=== PATIENT | male | born 1980 | race Caucasian/White ===

== ENCOUNTER 2017-01-11 12:24 | Emergency (ER) | payer OTHER ==
[2017-01-11 12:49] VITALS: BP 143/87; PULSE 83; RESP 16; TEMP 97.4
[2017-01-11] MEDS ORDERED: HYDROmorphone 1 MG/ML 1 ML SYRINGE IM STA (13:36)
--- NOTE | 2017-01-11 13:41 | ED ---
General Adult HPI - General Chief complaint: Back Pain/Injury Stated complaint: Back Injury/pain Time Seen by Provider: 01/11/17 13:00 Source: patient, RN notes reviewed Mode of arrival: ambulatory Limitations: no limitations - History of Present Illness Initial comments: This is a 36-year-old male presents with chronic low back pain. Patient states he follows with his primary care provider for this pain and she directly sent him to the today for a shot of Dilaudid. Patient states he is taking care of his daughter over the weekend and has been moving so his back pain has been worse than usual. Patient denies any new injury or any new symptoms. Patient denies any change in bowel or bladder function or loss of sensation to the saddle area. Patient states this is the same pain he always has. Patient denies any numbness/tingling or weakness to the lower extremities. Patient is able to ambulate. Patient is already on a muscle relaxer and a steroid for this pain. Patient states he is going to follow up with his primary care provider for further pain management.Patient denies any recent fever, chills, shortness breath, chest pain, abdominal pain, nausea/vomiting/diarrhea, back pain, hematuria, headache, or visual changes, or any other complaints. - Related Data Home Medications Medication Instructions Recorded Confirmed Ibuprofen [Motrin] 800 mg PO Q8HR PRN 02/12/16 03/06/16 Gabapentin [Neurontin] 600 mg PO TID 03/06/16 03/06/16 Previous Rx's Medication Instructions Recorded Cyclobenzaprine [Flexeril] 10 mg PO TID #20 tablet 03/06/16 Gabapentin [Neurontin] 600 mg PO TID #60 tab 03/06/16 predniSONE 50 mg PO DAILY #5 tab 03/06/16 Gabapentin 600 mg PO TID #90 tab 06/21/16 Metaxalone [Skelaxin] 800 mg PO TID PRN #15 tab 06/21/16 Allergies Allergy/AdvReac Type Severity Reaction Status Date / Time Benzodiazepines AdvReac Unknown Verified 01/11/17 12:46 Review of Systems ROS Statement: Those systems with pertinent positive or pertinent negative responses have been documented in the HPI. ROS Other: All systems not noted in ROS Statement are negative. Past Medical History Additional Past Medical History / Comment(s): BACK PAIN History of Any Multi-Drug Resistant Organisms: None Reported Past Surgical History: No Surgical Hx Reported Past Psychological History: Anxiety, PTSD Smoking Status: Current every day smoker Past Alcohol Use History: None Reported Past Drug Use History: None Reported General Exam - General Exam Comments Initial Comments: General: The patient is awake and alert, in no distress, and does not appear acutely ill. Neck: The neck is supple, there is no tenderness or JVD. Cardiovascular: There is a regular rate and rhythm. No murmur, rub or gallop is appreciated. Respiratory: Lungs are clear to auscultation, respirations are non-labored, breath sounds are equal. No wheezes, stridor, rales, or rhonchi. Musculoskeletal: There is some mild tenderness to palpation to the right side lumbar paraspinal muscles. Patient is able to ambulate. Full range of motion, strength 5/5 and Sensation intact. Radial pulses 2+ bilaterally. Neurological: A&O x 3. CN II-XII intact, There are no obvious motor or sensory deficits. Coordination appears grossly intact. Speech is normal. Skin: Skin is warm and dry and no rashes or lesions are noted. Psychiatric: Normal mood and affect. Limitations: no limitations Course Vital Signs 01/11/17 12:46 Temperature 97.4 F L Pulse Rate 83 Respiratory 16 Rate Blood Pressure 143/87 O2 Sat by Pulse 98 Oximetry Medical Decision Making - Medical Decision Making This is a 36-year-old male presents with chronic lower back pain who was sent by his primary care provider for shot of Dilaudid. On physical exam patient is neurologically intact. There is some mild tenderness to palpation to the right side lumbar paraspinal muscles. Patient is able to ambulate. Full range of motion, strength 5/5 and Sensation intact. Radial pulses 2+ bilaterally. Patient was given a shot of Dilaudid in the [facility] today. Patient has a ride home. Patient agrees that he will follow-up with his primary care provider for further pain management. Discussed return parameters. Discussed that patient should follow up with PCP in one to 2 days or return to the [facility] for any worsening symptoms or for any further concerns. Patient was receptive to this plan and patient will be discharged home. Disposition Clinical Impression: Chronic low back pain Disposition: HOME SELF-CARE Condition: Good Instructions: Chronic Back Pain (ED) Additional Instructions: Please follow-up with primary care provider for further pain management. Please return to the [facility] for any worsening symptoms or for any further concerns. Time of Disposition: 13:39
== END 2017-01-11 14:01 | disposition home or self-care (01) ==
LOC: EC 12:24
DX: G89.29 Other chronic pain (principal); M54.5 Low back pain; F17.200 Nicotine dependence, unspecified, uncomplicated; Z79.899 Other long term (current) drug therapy
CPT/HCPCS: 99283; 96372; J1170

== ENCOUNTER 2017-03-10 15:27 | Emergency (ER) | payer OTHER ==
[2017-03-10 15:43] VITALS: BP 120/67; PULSE 96; RESP 18; TEMP 98.3
[2017-03-10] MEDS ORDERED: HYDROmorphone 1 MG/ML 1 ML SYRINGE IM STA (15:57)
[2017-03-10] MEDS ORDERED: methylPREDNISolone SOD SUCCI 125 MG/2 ML VIAL IM ONE (15:57)
--- NOTE | 2017-03-10 16:01 | ED ---
Back Pain HPI - General Chief Complaint: Back Pain/Injury Stated Complaint: back pain Time Seen by Provider: 03/10/17 15:44 Source: patient, RN notes reviewed, old records reviewed Limitations: no limitations - History of Present Illness Initial Comments: Patient is a 29-year-old male with chief complaint of acute exacerbation of chronic back pain. Patient reports that he called his primary care provider in the emergency department for a pain shot. Patient states that he is beginning with back pain for many years. He states that he has been taking Tylenol for his pain which usually help. He states that over the past few days and became much worse and radiates on the right side of his back into his right leg. He denies any saddle anesthesias or incontinence. Patient states that he is currently take care of his daughter with partial custody and when he is with her area becomes worse as he has to continue to pick her up. Patient states that he's had no falls or traumatic injuries to cause new pain. He states he has had CAT scans and MRIs and is planning to see a pain specialist. Patient has an appointment with the house painter on April 14. He states he has an appointment to see his primary care provider by the end of the next week. Patient denies any recent fever, chills, shortness of breath, chest pain , abdominal pain, nausea vomiting, numbness or tingling, dysuria or hematuria, constipation or diarrhea, headaches or visual changes, or any other current symptoms - Related Data Home Medications Medication Instructions Recorded Confirmed Ibuprofen [Motrin] 800 mg PO Q8HR PRN 02/12/16 03/06/16 Gabapentin [Neurontin] 600 mg PO TID 03/06/16 03/06/16 Previous Rx's Medication Instructions Recorded Cyclobenzaprine [Flexeril] 10 mg PO TID #20 tablet 03/06/16 Gabapentin [Neurontin] 600 mg PO TID #60 tab 03/06/16 predniSONE 50 mg PO DAILY #5 tab 03/06/16 Gabapentin 600 mg PO TID #90 tab 06/21/16 Metaxalone [Skelaxin] 800 mg PO TID PRN #15 tab 06/21/16 Dexamethasone 0.75 mg PO DAILY #12 tab 03/10/17 traMADol HCl [Ultram] 50 mg PO Q6H PRN #15 tab 03/10/17 Allergies Allergy/AdvReac Type Severity Reaction Status Date / Time No Known Allergies Allergy Verified 03/10/17 15:43 Review of Systems ROS Statement: Those systems with pertinent positive or pertinent negative responses have been documented in the HPI. ROS Other: All systems not noted in ROS Statement are negative. Past Medical History Additional Past Medical History / Comment(s): BACK PAIN History of Any Multi-Drug Resistant Organisms: None Reported Past Surgical History: No Surgical Hx Reported Past Psychological History: Anxiety, PTSD Smoking Status: Current every day smoker Past Alcohol Use History: None Reported Past Drug Use History: None Reported General Exam - General Exam Comments Initial Comments: Patient is a 37-year-old male in no acute distress. Limitations: no limitations General appearance: alert, in no apparent distress Head exam: Present: atraumatic, normocephalic, normal inspection Eye exam: Present: normal appearance, PERRL, EOMI. Absent: scleral icterus, conjunctival injection, periorbital swelling ENT exam: Present: normal exam, mucous membranes moist Neck exam: Present: normal inspection. Absent: tenderness, meningismus, lymphadenopathy Respiratory exam: Present: normal lung sounds bilaterally. Absent: respiratory distress, wheezes, rales, rhonchi, stridor Cardiovascular Exam: Present: regular rate, normal rhythm, normal heart sounds. Absent: systolic murmur, diastolic murmur, rubs, gallop, clicks GI/Abdominal exam: Present: soft, normal bowel sounds. Absent: distended, tenderness, guarding, rebound, rigid Extremities exam: Present: normal inspection, full ROM, normal capillary refill. Absent: tenderness, pedal edema, joint swelling, calf tenderness Back exam: Present: normal inspection, tenderness (Patient has tenderness over the right lumbar paraspinous muscles.), muscle spasm, paraspinal tenderness Expanded Back exam: Positive Straight Leg Raise: Right Neurological exam: Present: alert, oriented X3, CN II-XII intact Psychiatric exam: Present: normal affect, normal mood Skin exam: Present: warm, dry, intact, normal color. Absent: rash Course Vital Signs 03/10/17 15:40 Temperature 98.3 F Pulse Rate 96 Respiratory 18 Rate Blood Pressure 120/67 O2 Sat by Pulse 97 Oximetry Medical Decision Making - Medical Decision Making Is a 37-year-old male with chief complaint acute exacerbation of chronic lower back pain. He states is worse over the past 3 days. He denies any urinary incontinence anesthesias. Patient states he is able to walk. Sensation and deep tendon reflexes intact. Patient has normal capillary refill. Patient is tender to the right paraspinous muscles. Patient was given IM plan Medrol and 0.5 of Dilaudid. Patient has a ride home by his girlfriend. Patient will be discharged with eczema some for the next few days as well as tramadol for pain. Discussed close follow-up with primary care provider and to keep the pain management clinic. Patient states that he does not want any other imaging states at this time due to no history of trauma or injuries. He states he's had recent CAT scans and MRIs which show that he is currently disc bulges. Patient agrees on return parameters including saddle anesthesia urinary incontinence. Patient understood history plan will comply. Return parameters were discussed. Disposition Clinical Impression: Acute exacerbation of chronic low back pain Disposition: HOME SELF-CARE Condition: Good Instructions: Acute Low Back Pain (ED) Additional Instructions: Patient advised to follow up with primary care provider next week. Keep ear appointment with a house painter. Return to the emergency department if any alarming signs or symptoms occur, including loss of bowel or bladder control. Prescriptions: Dexamethasone 0.75 mg PO DAILY #12 tab traMADol HCl [Ultram] 50 mg PO Q6H PRN #15 tab PRN Reason: Pain Referrals: Katey Shaw MD [Primary Care Provider] - 1-2 days Jae Basilio DO [Doctor of Osteopathic Medicine] - 1-2 days Time of Disposition: 15:58
== END 2017-03-10 16:11 | disposition home or self-care (01) ==
LOC: EC 15:27
DX: G89.29 Other chronic pain (principal); M54.5 Low back pain; L30.9 Dermatitis, unspecified; F41.9 Anxiety disorder, unspecified; F17.200 Nicotine dependence, unspecified, uncomplicated; Z79.899 Other long term (current) drug therapy
CPT/HCPCS: 99283; 96372 ×2; J2930; J1170

== ENCOUNTER 2017-06-03 11:21 | Emergency (ER) | payer OTHER ==
[2017-06-03 11:33] VITALS: RESP 18
--- NOTE | 2017-06-03 11:56 | ED ---
General Adult HPI - General Chief complaint: Anxiety Stated complaint: ANXIETY Time Seen by Provider: 06/03/17 11:36 Source: patient, RN notes reviewed, old records reviewed Mode of arrival: ambulatory Limitations: no limitations - History of Present Illness Initial comments: Chief complaint history of present illness a 37-year-old male here with complaint of panic attacks. The patient states she has a history of PTSD from the . He also has chronic back pain. He states he has an appointment to follow-up with the trish saul one week and his family physician. He states for the past week he's had episodes where he he has severe panic attacks. Not suicidal not depressed. - Related Data Home Medications Medication Instructions Recorded Confirmed Ibuprofen [Motrin] 800 mg PO Q8HR PRN 02/12/16 03/06/16 Gabapentin [Neurontin] 600 mg PO TID 03/06/16 03/06/16 Previous Rx's Medication Instructions Recorded Cyclobenzaprine [Flexeril] 10 mg PO TID #20 tablet 03/06/16 Gabapentin [Neurontin] 600 mg PO TID #60 tab 03/06/16 predniSONE 50 mg PO DAILY #5 tab 03/06/16 Gabapentin 600 mg PO TID #90 tab 06/21/16 Metaxalone [Skelaxin] 800 mg PO TID PRN #15 tab 06/21/16 Dexamethasone 0.75 mg PO DAILY #12 tab 03/10/17 traMADol HCl [Ultram] 50 mg PO Q6H PRN #15 tab 03/10/17 ALPRAZolam [Xanax] 0.25 mg PO DAILY PRN #10 tab 06/03/17 Allergies Allergy/AdvReac Type Severity Reaction Status Date / Time No Known Allergies Allergy Verified 06/03/17 11:32 Review of Systems ROS Statement: Those systems with pertinent positive or pertinent negative responses have been documented in the HPI. Review of systems not complaining of any headache visual acuity, no chest pain shortness breath GI/ problems. Emotionally the patient states he has PTSD and anxiety with panic attacks. He states he used to be on Xanax which weren't taken at the beginning of a panic attack help stop the panic attack quickly. He takes less than one per week. All systems were reviewed past medical problems chronic back pain, degenerative disc disease, PTSD. Patient's family history grandfather colon cancer. The patient smoke strongly encouraged to stop denies alcohol use. Denies any ALLERGIES. ROS Other: All systems not noted in ROS Statement are negative. Past Medical History Additional Past Medical History / Comment(s): BACK PAIN History of Any Multi-Drug Resistant Organisms: None Reported Past Surgical History: No Surgical Hx Reported Past Psychological History: Anxiety, PTSD Smoking Status: Current every day smoker Past Alcohol Use History: None Reported Past Drug Use History: None Reported General Exam - General Exam Comments Initial Comments: General: The patient is awake and alert, patient states he has episodes of anxiety and panic attacks. Vital signs are temperature 98.3 pulse 65 respiratory rate 18 pulse ox on percent room air blood pressure 117/73 Eye: Pupils are equal, t , extra-ocular movements are intact; there is normal conjunctiva bilaterally. No signs of icterus. Cardiovascular: There is a regular rate and rhythm. No murmur, rub or gallop is appreciated. Respiratory: Lungs are clear to auscultation, respirations are non-labored, breath sounds are equal. No wheezes, stridor, rales, or rhonchi. Musculoskeletal: Normal ROM, no tenderness, There is no pedal edema. There is no calf tenderness or swelling. Sensation intact. Complains of chronic back pain Neurological: Takes gabapentin for chronic sciatic discomfort Skin: Multiple tattoos from neck to feet. Psychiatric: History of PTSD, anxiety and panic attacks. Denies thoughts of depression or suicide. Limitations: no limitations Course Vital Signs 06/03/17 11:29 Temperature 98.3 F Pulse Rate 65 Respiratory 18 Rate Blood Pressure 117/73 O2 Sat by Pulse 100 Oximetry Medical Decision Making - Medical Decision Making The patient be given a prescription for Xanax10 tablets to be taken as directed. Also follow-up with his family physician and community mental health as he states he is becoming involved with starting yesterday. patient does not want to speak to a psychiatric nurse. Denying thoughts of depression or suicide. He just needs Xanax which helped him in the past control anxiety. Disposition Clinical Impression: Acute anxiety Disposition: HOME SELF-CARE Condition: Fair Additional Instructions: Takes Zantac as directed. Return emergency room if he develop depression or suicidal thoughts. Follow-up with family physician and community mental health. Prescriptions: ALPRAZolam [Xanax] 0.25 mg PO DAILY PRN #10 tab PRN Reason: Anxiety Referrals: Katey Shaw MD [Primary Care Provider] - 1-2 days Time of Disposition: 11:56
[2017-06-03 12:33] VITALS: BP 123/81; PULSE 58; TEMP 97.7
== END 2017-06-03 12:32 | disposition home or self-care (01) ==
LOC: EC 11:21
DX: F41.9 Anxiety disorder, unspecified (principal); M54.9 Dorsalgia, unspecified; G89.29 Other chronic pain; F43.10 Post-traumatic stress disorder, unspecified; F17.200 Nicotine dependence, unspecified, uncomplicated; Z79.899 Other long term (current) drug therapy
CPT/HCPCS: 99283

== ENCOUNTER 2018-02-09 17:31 | Emergency (ER) | payer OTHER ==
[2018-02-09 17:41] VITALS: BP 148/86; PULSE 90; RESP 18; TEMP 98.6
--- NOTE | 2018-02-09 17:59 | ED ---
Recheck HPI - General Chief Complaint: Recheck/Abnormal Lab/Rx Stated Complaint: Medication refill needed Time Seen by Provider: 02/09/18 17:42 Source: patient, RN notes reviewed Mode of arrival: ambulatory Limitations: no limitations - History of Present Illness Initial Comments: This is a 38-year-old male who presents to the emergency department with request for medication refill. Patient states that he is originally from [place] and sees nurse practitioner locally. He states that he was living in [place] and that he continued to have his medications prescribed by the nurse practitioner here. He states that he is trying to move back to the area and has been back since Tuesday. He states that he called to set up an appointment with his nurse practitioner but that she is out of the office with hip surgery. He states he is unable to follow-up until February 21. He states that he ran out of his last gabapentin on Tuesday. He states that he has 4 or 5 pills left over of his Paxil. He states that he is been sleeping on his friend's floor and that his left sided sciatica is flaring up. He also states that his social anxiety is getting worse since he's been out of his gabapentin. Denies fever, chills, chest pain, shortness of breath, abdominal pain, nausea or vomiting, constipation or diarrhea, dysuria or hematuria, numbness or tingling, headache or vision changes. - Related Data Previous Rx's Medication Instructions Recorded Gabapentin 600 mg PO QID #40 tablet 02/09/18 PARoxetine HCL [Paxil] 30 mg PO DAILY #10 tablet 02/09/18 Allergies Allergy/AdvReac Type Severity Reaction Status Date / Time No Known Allergies Allergy Verified 02/09/18 17:38 Review of Systems ROS Statement: Those systems with pertinent positive or pertinent negative responses have been documented in the HPI. ROS Other: All systems not noted in ROS Statement are negative. Past Medical History Additional Past Medical History / Comment(s): BACK PAIN History of Any Multi-Drug Resistant Organisms: None Reported Past Surgical History: No Surgical Hx Reported Past Psychological History: Anxiety, PTSD Smoking Status: Current every day smoker Past Alcohol Use History: None Reported Past Drug Use History: Marijuana General Exam - General Exam Comments Initial Comments: General: Awake and alert, well-developed; in no apparent distress. HEENT: Head atraumatic, normocephalic. Pupils are equal, round and reactive to light. Extraocular movements intact. Oropharynx moist without erythema or exudate. Neck: Supple. Normal ROM. Cardiovascular: Regular rate and rhythm. No murmurs, rubs or gallops. Chest symmetrical. Respiratory: Lungs clear to auscultation bilaterally. No wheezes, rales or rhonchi. Normal respiratory effort with no use of accessory muscles. Musculoskeletal: Normal ROM, no tenderness bilateral upper and lower extremities. Ambulating normally. Skin: [place], warm and dry without rashes or lesions. Multiple neck, hand and facial tattoos noted. Neurological: Alert and oriented x3. CN II-XII grossly intact. Speech is fluent and answers are appropriate. No focal neuro deficits. Psychiatric: Patient appears anxious and is continuously fidgeting with his hands. Limitations: no limitations Course Vital Signs 02/09/18 17:38 Temperature 98.6 F Pulse Rate 90 Respiratory 18 Rate Blood Pressure 148/86 O2 Sat by Pulse 100 Oximetry Medical Decision Making - Medical Decision Making This is a 38-year-old male who presents to the emergency department with request for medication refill. He requests refills for his Paxil and gabapentin. I spoke with pharmacy technicians who verified patient's medications. He takes Paxil 30 mg daily and gabapentin 600 mg 4 times a day. Patient is unable to follow up with his primary care provider until February 21. I spoke with attending physician, Dr. Mena who states that I am to refill patient's medications. Patient has no other complaints and is in no acute distress. He will be discharged home with prescriptions until he is able to follow-up. Patient is in agreement and voices understanding. All questions were answered. Disposition Clinical Impression: Encounter for medication refill Disposition: HOME SELF-CARE Condition: Good Instructions: Gabapentin (By mouth), Paroxetine (By mouth) Additional Instructions: Please take medications as prescribed. Please follow up with primary care provider as scheduled. Return to emergency department if symptoms should worsen or any concerns arise. Prescriptions: Gabapentin 600 mg PO QID #40 tablet PARoxetine HCL [Paxil] 30 mg PO DAILY #10 tablet Referrals: Katey Shaw MD [Primary Care Provider] - 1-2 days Time of Disposition: 17:58
== END 2018-02-09 18:03 | disposition home or self-care (01) ==
LOC: EC 17:31
DX: Z76.0 Encounter for issue of repeat prescription (principal); F17.200 Nicotine dependence, unspecified, uncomplicated
CPT/HCPCS: 99281

== ENCOUNTER 2018-03-17 17:08 | Emergency (ER) | payer OTHER ==
[2018-03-17 17:21] VITALS: TEMP 99.1
--- NOTE | 2018-03-17 18:46 | ED ---
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 Patient states that he was having some discomfort to the left lower quadrant of his abdomen on his way to work. Patient states he was quite uncomfortable and his work sent here for further evaluation. He states that on his way here he did pass a considerable amount of gas. States that his pain has resolved. He is currently feeling well. He denies any nausea or vomiting with this. Denies any constipation or diarrhea. Denies any fevers or chills. States he is urinating without difficulty. Patient denies any recent rash, shortness breath, chest pain, back pain, numbness, tingling, dizziness, weakness, hematuria, dysuria, urinary urgency, urinary frequency, headache, visual changes, or any other complaints. - Related Data Home Medications Medication Instructions Recorded Confirmed Gabapentin 800 mg PO QID 03/17/18 03/17/18 Previous Rx's Medication Instructions Recorded PARoxetine HCL [Paxil] 30 mg PO DAILY #10 tablet 02/09/18 Allergies Allergy/AdvReac Type Severity Reaction Status Date / Time ketorolac [From Toradol] Allergy anxiety Verified 03/17/18 18:48 Review of Systems ROS Statement: Those systems with pertinent positive or pertinent negative responses have been documented in the HPI. ROS Other: All systems not noted in ROS Statement are negative. Past Medical History Additional Past Medical History / Comment(s): Hep C, back pain History of Any Multi-Drug Resistant Organisms: None Reported Past Surgical History: Hernia Repair Past Psychological History: Anxiety, PTSD Smoking Status: Current every day smoker Past Alcohol Use History: None Reported Past Drug Use History: Marijuana General Exam Limitations: no limitations General appearance: alert, in no apparent distress, other (This is a well- developed, well-nourished adult male patient in no acute distress. Vital signs upon presentation are temperature 99.1F, pulse 88, respirations 18, blood pressure 119/88, pulse ox 98% on room air.) Eye exam: Present: normal appearance, PERRL, EOMI. Absent: scleral icterus, conjunctival injection, periorbital swelling ENT exam: Present: normal exam, normal oropharynx, mucous membranes moist Respiratory exam: Present: normal lung sounds bilaterally. Absent: respiratory distress, wheezes, rales, rhonchi, stridor Cardiovascular Exam: Present: regular rate, normal rhythm, normal heart sounds. Absent: systolic murmur, diastolic murmur, rubs, gallop, clicks GI/Abdominal exam: Present: soft, normal bowel sounds. Absent: distended, tenderness, guarding, rebound, rigid Neurological exam: Present: alert, oriented X3, CN II-XII intact Psychiatric exam: Present: normal affect, normal mood Skin exam: Present: warm, dry, intact, normal color. Absent: rash Course Vital Signs 03/17/18 03/17/18 17:17 18:52 Temperature 99.1 F Pulse Rate 88 80 Respiratory 18 16 Rate Blood Pressure 119/88 120/60 O2 Sat by Pulse 98 99 Oximetry Medical Decision Making - Medical Decision Making 38-year-old male patient presents to the emergency department today for evaluation of left lower quadrant abdominal pain. Patient reported that the pain had resolved on his way to the emergency department after passing gas. Physical examination is unremarkable. Abdomen is soft and nontender. I did offer to perform labs and x-ray for the patient, he refuses at this time stating that he feels well. Return parameters discussed in detail. He is instructed to follow-up with his primary care physician for recheck in 1-2 days. He verbalizes understanding and agrees with this plan. Disposition Clinical Impression: Abdominal pain Disposition: HOME SELF-CARE Condition: Good Instructions: Abdominal Pain (ED) Additional Instructions: Follow-up with her primary care physician for recheck in 1-2 days. Return here immediately for any new, worsening, or concerning symptoms. Is patient prescribed a controlled substance at d/c from ED?: No Referrals: Katey Shaw MD [Primary Care Provider] - 1-2 days Time of Disposition: 18:46
[2018-03-17 18:53] VITALS: BP 120/60; PULSE 80; RESP 16
== END 2018-03-17 18:53 | disposition home or self-care (01) ==
LOC: EC 17:08
DX: R10.32 Left lower quadrant pain (principal); F41.9 Anxiety disorder, unspecified; F17.200 Nicotine dependence, unspecified, uncomplicated; Z79.899 Other long term (current) drug therapy; Z88.6 Allergy status to analgesic agent
CPT/HCPCS: 99283

== ENCOUNTER 2018-04-28 16:19 | Emergency (ER) | payer OTHER ==
[2018-04-28 17:02] VITALS: RESP 18
--- NOTE | 2018-04-28 18:07 | ED ---
Head Injury HPI - General Chief complaint: Head Injury Stated complaint: Head injury with LOC Time Seen by Provider: 04/28/18 17:46 Source: patient, RN notes reviewed Mode of arrival: ambulatory Limitations: no limitations - History of Present Illness Initial comments: 38-year-old male presents emergency Department chief complaint of head injury. Patient states that he was bending down and sit up and cut his head on the shelf. Patient states he has an abrasion to his head. Patient denies any current headache. He states he had a headache at the time but had resolved. Patient states his sense up-to-date. Denies any blurred vision, focal weakness , nausea, vomiting, neck pain. Patient states that he had a colostomy work because he wanted to be evaluated and states that he needs a work note - Related Data Home Medications Medication Instructions Recorded Confirmed Ibuprofen [Motrin Ib] 200 mg PO Q6H PRN 04/28/18 04/28/18 Previous Rx's Medication Instructions Recorded PARoxetine HCL [Paxil] 30 mg PO DAILY #10 tablet 02/09/18 Allergies/Adverse reactions: Allergies Allergy/AdvReac Type Severity Reaction Status Date / Time ketorolac [From Toradol] Allergy anxiety Verified 04/28/18 17:56 Review of Systems ROS Statement: Those systems with pertinent positive or pertinent negative responses have been documented in the HPI. ROS Other: All systems not noted in ROS Statement are negative. Past Medical History Additional Past Medical History / Comment(s): Hep C, back pain History of Any Multi-Drug Resistant Organisms: None Reported Past Surgical History: Hernia Repair Past Psychological History: Anxiety, PTSD Smoking Status: Current every day smoker Past Alcohol Use History: None Reported Past Drug Use History: Marijuana General Exam Limitations: no limitations General appearance: alert, in no apparent distress Head exam: Present: atraumatic, normocephalic. Absent: normal inspection ( Abrasion noted to the parietal region) Eye exam: Present: normal appearance, PERRL, EOMI. Absent: scleral icterus, conjunctival injection, periorbital swelling ENT exam: Present: normal exam, normal oropharynx, mucous membranes moist, TM's normal bilaterally Neck exam: Present: normal inspection, full ROM. Absent: tenderness, meningismus, lymphadenopathy Respiratory exam: Present: normal lung sounds bilaterally. Absent: respiratory distress, wheezes, rales, rhonchi, stridor Cardiovascular Exam: Present: regular rate, normal rhythm, normal heart sounds. Absent: systolic murmur, diastolic murmur, rubs, gallop, clicks Extremities exam: Present: normal inspection, full ROM, normal capillary refill. Absent: tenderness, pedal edema, joint swelling, calf tenderness Back exam: Present: normal inspection, full ROM. Absent: tenderness Neurological exam: Present: alert, oriented X3, CN II-XII intact, reflexes normal, other (finger nose intact bilat). Absent: motor sensory deficit Skin exam: Present: warm, dry, intact, normal color. Absent: rash Course Vital Signs 04/28/18 16:58 Temperature 98.4 F Pulse Rate 88 Respiratory 18 Rate Blood Pressure 126/75 O2 Sat by Pulse 98 Oximetry Medical Decision Making - Medical Decision Making 38-year-old male presented for head injury. Patient does have an abrasion to his head and which she is up-to-date on his tetanus. Patient has no current headache and did have a headache and states that he nearly lost consciousness there is no loss conscious. CT was recommended patient states he rather just be observed at home and return for any worsening symptoms. Patient is requesting a work note Disposition Clinical Impression: Head injury, Abrasion of scalp Disposition: HOME SELF-CARE Condition: Stable Instructions: Concussion (ED) Additional Instructions: Please return to the Emergency Department if symptoms worsen or any other concerns. Is patient prescribed a controlled substance at d/c from ED?: No Referrals: Katey Shaw MD [Primary Care Provider] - 1-2 days Time of Disposition: 18:07
[2018-04-28 18:55] VITALS: BP 145/95; PULSE 91; TEMP 97.1
== END 2018-04-28 18:58 | disposition home or self-care (01) ==
LOC: EC 16:19
DX: S00.01XA Abrasion of scalp, initial encounter (principal); F17.200 Nicotine dependence, unspecified, uncomplicated; Z88.5 Allergy status to narcotic agent; W22.8XXA Striking against or struck by other objects, initial encounter
CPT/HCPCS: 99283

== ENCOUNTER → 2021-06-24 | Outpatient (CLI) | payer OTHER ==
--- NOTE | 2021-06-24 15:52 | US ---
EXAMINATION TYPE: US abdomen complete DATE OF EXAM: 06/24/2021 COMPARISON: NONE CLINICAL HISTORY: B19.20 Unspecified viral hepatitis C without hepat. Epigastric pain EXAM MEASUREMENTS: Liver Length: 15.9 cm Gallbladder Wall: 0.1 cm CBD: 0.5 cm Spleen: 12.5 cm Right Kidney: 10.3 x 4.9 x 5.4 cm Left Kidney: 10.5 x 5.0 x 4.6 cm Pancreas: Obscured by bowel gas Liver: wnl Gallbladder: wnl Evidence for sonographic Bowman's sign: No CBD: wnl Spleen: wnl Right Kidney: No hydronephrosis or masses seen Left Kidney: No hydronephrosis or masses seen Upper IVC: wnl Abd Aorta: wnl IMPRESSION: 1. Normal abdomen ultrasound
== END | disposition home or self-care (01) ==
LOC: RADUSWWP 08:59
PROVIDERS: ATTEND Family Medicine
DX: B19.20 Unspecified viral hepatitis C without hepatic coma (principal); R10.13 Epigastric pain
CPT/HCPCS: 76700

== ENCOUNTER 2021-10-22 20:56 | Emergency (ER) | payer OTHER ==
[2021-10-22 22:44] VITALS: RESP 20; TEMP 98.2
--- NOTE | 2021-10-22 23:50 | XR ---
EXAMINATION TYPE: XR lumbar spine 2 or 3V DATE OF EXAM: 10/22/2021 COMPARISON: 06/19/2013 HISTORY: Pain TECHNIQUE: 3 views FINDINGS: Lumbar vertebra have normal alignment. Posterior elements are intact. There is mild L5-S1 d isc space narrowing. Sacroiliac joints are intact. IMPRESSION: No fracture. Mild degenerative disc space narrowing at L5-S1 that has progressed compared to old exam.
[2021-10-23] MEDS ORDERED: MORPHINE SULFATE 4 MG/ML SYRINGE IM STA (00:51)
[2021-10-23] MEDS ORDERED: methylPREDNISolone SOD SUCCI 125 MG/2 ML VIAL IM ONE (00:51)
[2021-10-23] MEDS ORDERED: traMADol 50 MG STARTER PACK 3 TAB BTL PO STA (00:51)
[2021-10-23] MEDS ORDERED: CYCLOBENZAPRINE 10MG STARTER 3 TAB BTL PO STA (00:51)
--- NOTE | 2021-10-23 00:53 | ED ---
Back Pain HPI - General Chief Complaint: Back Pain/Injury Stated Complaint: Back pain Time Seen by Provider: 10/23/21 00:43 Source: patient Limitations: no limitations - History of Present Illness Initial Comments: 41 year-old male patient presents for evaluation of increased low back pain. States that he does have chronic low back pain. States all at work he tweaked his back and then again tonight. States he is having pain over the low middle back. Denies radiation down his legs. Denies saddle anesthesia or loss of bowel or bladder control. Denies any numbness or tingling to the lower extremities. Denies any fall or injury to the back. States he took ibuprofen prior to coming in. He denies any fever or chills. Denies history of IV drug use. - Related Data Home Medications Medication Instructions Recorded Confirmed Ibuprofen [Motrin Ib] 200 mg PO Q6H PRN 04/28/18 04/28/18 Previous Rx's Medication Instructions Recorded PARoxetine HCL [Paxil] 30 mg PO DAILY #10 tablet 02/09/18 Allergies Allergy/AdvReac Type Severity Reaction Status Date / Time ketorolac [From Toradol] Allergy anxiety Verified 10/22/21 22:44 Review of Systems ROS Statement: Those systems with pertinent positive or pertinent negative responses have been documented in the HPI. ROS Other: All systems not noted in ROS Statement are negative. Past Medical History Additional Past Medical History / Comment(s): Hep C, back pain History of Any Multi-Drug Resistant Organisms: None Reported Past Surgical History: Hernia Repair Past Psychological History: Anxiety, PTSD Smoking Status: Current every day smoker Past Alcohol Use History: None Reported Past Drug Use History: Marijuana General Exam Limitations: no limitations General appearance: alert, in no apparent distress, other (Social well- developed, well-nourished adult male in no acute distress.) Respiratory exam: Present: normal lung sounds bilaterally. Absent: respiratory distress, wheezes, rales, rhonchi, stridor Cardiovascular Exam: Present: regular rate, normal rhythm, normal heart sounds. Absent: systolic murmur, diastolic murmur, rubs, gallop, clicks GI/Abdominal exam: Present: soft, normal bowel sounds. Absent: distended, tenderness, guarding, rebound, rigid Extremities exam: Present: normal inspection, full ROM, normal capillary refill, other (Skin to the lower extremities is pink, warm, dry. Cap refill less than 3 seconds. Pedal and posttibial pulses 2+.). Absent: tenderness, pedal edema, joint swelling, calf tenderness Back exam: Present: normal inspection. Absent: vertebral tenderness Neurological exam: Present: alert, oriented X3, CN II-XII intact, other (Strength of lower extremities is 5/5.) Psychiatric exam: Present: normal affect, normal mood Skin exam: Present: warm, dry, intact, normal color. Absent: rash Course Vital Signs 10/22/21 10/23/21 22:40 01:15 Temperature 98.2 F 98.2 F Pulse Rate 69 70 Respiratory 20 20 Rate Blood Pressure 119/76 118/80 O2 Sat by Pulse 97 97 Oximetry Medical Decision Making - Medical Decision Making 41-year-old male patient presents to the emergency department today for evaluation of increased low back pain. Physical examination is unremarkable. Strength lower extremities is intact. He is neurovascularly intact. X-rays showed progressing degenerative disc disease. He has no concerning symptoms for cauda equina. He was given IM steroid per his request. He refused morphine. Given tramadol oral and Flexeril oral. He'll be discharged to follow-up with the primary care physician for recheck in 1-2 days. Return parameters were discussed in detail. He verbalizes understanding and agrees with this plan. My attending is Dr. Fang. - Radiology Data Radiology results: report reviewed, image reviewed Reviews of the lumbar spine are obtained. Report was reviewed in its entirety. Impression by Dr. Rhodes shows no fracture. Mild degenerative disc space narrowing at L5-S1 has progressed compared to old exam. Disposition Clinical Impression: Acute exacerbation of chronic low back pain Disposition: HOME SELF-CARE Condition: Good Instructions (If sedation given, give patient instructions): Acute Low Back Pain (ED) Additional Instructions: Take medication as directed. Return for any new, worsening, or concerning symptoms. Is patient prescribed a controlled substance at d/c from ED?: No Referrals: Katey Shaw MD [Primary Care Provider] - 1-2 days Time of Disposition: 00:53
[2021-10-23 01:16] VITALS: BP 118/80; PULSE 70
== END 2021-10-23 01:15 | disposition home or self-care (01) ==
LOC: SUPCPDRO 20:56 → EC 20:56
DX: M54.50 Low back pain, unspecified (principal); F41.9 Anxiety disorder, unspecified; F43.12 Post-traumatic stress disorder, chronic; F17.200 Nicotine dependence, unspecified, uncomplicated; F12.90 Cannabis use, unspecified, uncomplicated; Z88.1 Allergy status to other antibiotic agents
CPT/HCPCS: 99283; 96372; 72100; J2930

== ENCOUNTER 2023-03-04 13:11 | Emergency (ER) | payer OTHER ==
[2023-03-04 13:21] VITALS: BP 152/79; PULSE 85; RESP 20; TEMP 97.9
--- NOTE | 2023-03-04 13:49 | ED ---
Recheck HPI - General Chief Complaint: Recheck/Abnormal Lab/Rx Stated Complaint: MENTAL HEALTH/ANXIETY Time Seen by Provider: 03/04/23 13:25 Source: patient, RN notes reviewed Mode of arrival: ambulatory Limitations: no limitations - History of Present Illness Initial Comments: Patient is a 43-year-old male presenting to the emergency room with concerns regarding needs a medication refills of his Effexor and gabapentin which she has been on for some time for peripheral neuropathy due to back pain/injury and severe social anxiety without side effects. He reports that he was recently in [facility] long-term for 48 hours and upon his release he attempted to pick his medications up from his home and unfortunately his remaining doses were not in his belongings any longer. He was able to contact his primary care provider and schedule an appointment for 03/08/2023 to obtain refills but was advised to present to the emergency room with his anxiety or withdrawal symptoms worsened for short course of the medications in the interim. He denies any suicidal thoughts, homicidal thoughts, severe panic attacks, hallucinations or delusions. He denies any other complaints or concerns at this time. He has an additional past medical history significant for hepatitis C. - Related Data Previous Rx's Medication Instructions Recorded Gabapentin 600 mg PO QID 5 Days #20 tab 03/04/23 Venlafaxine HCl [Effexor XR] 150 mg PO DAILY 5 Days #5 cap 03/04/23 Allergies Allergy/AdvReac Type Severity Reaction Status Date / Time ketorolac [From Toradol] Allergy anxiety Verified 03/04/23 13:21 Review of Systems ROS Statement: Those systems with pertinent positive or pertinent negative responses have been documented in the HPI. ROS Other: All systems not noted in ROS Statement are negative. Past Medical History Additional Past Medical History / Comment(s): Hep C, back pain , COVID History of Any Multi-Drug Resistant Organisms: None Reported Past Surgical History: Hernia Repair Past Psychological History: Anxiety, PTSD Smoking Status: Current every day smoker Past Alcohol Use History: None Reported Past Drug Use History: Marijuana General Exam - General Exam Comments Initial Comments: GENERAL: No acute distress, well developed, well nourished. HEENT: Normocephalic, atraumatic. Pupils equal, round, reactive to light. Moist mucous membranes. LUNGS: No respiratory distress or use of accessory muscles. HEART: Regular rate.. ABDOMEN: Non-distended. BACK: Normal inspection. EXTREMITIES: No edema. No tenderness. Moves all extremities. NEUROLOGIC: Alert & oriented x 3. CN II-XII grossly intact. PSYCHIATRIC: Normal affect and behavior. DERMATOLOGIC: Skin intact, without rashes or lesions noted. Limitations: no limitations Course Vital Signs 03/04/23 13:15 Temperature 97.9 F Pulse Rate 85 Respiratory 20 Rate Blood Pressure 152/79 O2 Sat by Pulse 97 Oximetry Medical Decision Making - Medical Decision Making Was pt. sent in by a medical professional or institution (, [facility], [employer], urgent care, hospital, or fpc...) When possible be specific @ -No Did you speak to anyone other than the patient for history (EMS, parent, family, police, friend...)? What history was obtained from this source @ -Yes, I spoke with the pharmacist for medication verification and maps review. Did you review nursing and triage notes (agree or disagree)? Why? @ -I reviewed and agree with nursing and triage notes Were old charts reviewed (outside hosp., previous admission, EMS record, old EKG, old radiological studies, urgent care reports/EKG's, fpc records)? Report findings @ -Yes, I reviewed Prescription history and maps report Differential Diagnosis (chest pain, altered mental status, abdominal pain women, abdominal pain men, vaginal bleeding, weakness, fever, dyspnea, syncope, headache, dizziness, GI bleed, back pain, seizure, CVA, palpatations, mental health, musculoskeletal)? @ -not applicable EKG interpreted by me (3pts min.). @ -None done X-rays interpreted by me (1pt min.). @ -None done CT interpreted by me (1pt min.). @ -None done U/S interpreted by me (1pt. min.). @ -None done What testing was considered but not performed or refused? (CT, X-rays, U/S, labs)? Why? @ -None What meds were considered but not given or refused? Why? @ -None Did you discuss the management of the patient with other professionals (pro fessionals i.e. , [facility], [employer], lab, RT, psych nurse, social science teacher, crochet machine operator, teacher, employment security officer, case technician)? Give summary @ -No Was smoking cessation discussed for >3mins.? @ -No Was critical care preformed (if so, how long)? @ -No Were there social determinants of health that impacted care today? How? (Homelessness, low income, unemployed, alcoholism, drug addiction, transportation, low edu. Level, literacy, decrease access to med. care, long-term, rehab)? @ -No Was there de-escalation of care discussed even if they declined (Discuss DNR or withdrawal of care, Hospice)? DNR status @ -No What co-morbidities impacted this encounter? (DM, HTN, Smoking, COPD, CAD, Cancer, CVA, ARF, Chemo, Hep., AIDS, mental health diagnosis, sleep apnea, morbid obesity)? @ -None Was patient admitted / discharged? Hospital course, mention meds given and route, prescriptions, significant lab abnormalities, going to OR and other pertinent info. @ -43-year-old male presenting to the emergency room for temporary refills of his Effexor and gabapentin which she has been on long-standing. Medications were verified and maps was reviewed with pharmacy. No psychiatric symptoms requiring evaluation by EPS. No indication for diagnostic imaging or laboratory studies. Will provide temporary refill of medications for 5 days to get him to and through his next appointment with his primary care provider. Advised to take his medications as prescribed. Will discharge home in stable condition with 5 day refill of his gabapentin for peripheral neuropathy and Effexor for severe social anxiety advising follow-up with primary care provider. Undiagnosed new problem with uncertain prognosis? @ -No Drug Therapy requiring intensive monitoring for toxicity (Heparin, Nitro, Insulin, Cardizem)? @ -No Were any procedures done? @ -No Diagnosis/symptom? @ -Encounter for medication refill Acute, or Chronic, or Acute on Chronic? @ -Acute on chronic Uncomplicated (without systemic symptoms) or Complicated (systemic symptoms)? @ -Uncomplicated Side effects of treatment? @ -No Exacerbation, Progression, or Severe Exacerbation? @ -No Poses a threat to life or bodily function? How? (Chest pain, [place], [place], pneumonia, PE, COPD, DKA, ARF, appy, cholecystitis, CVA, Diverticulitis, Homicidal, Suicidal, threat to staff... and all critical care pts) @ -No Case discussed with Dr. Barker Disposition Clinical Impression: Encounter for medication refill Disposition: HOME SELF-CARE Condition: Stable Additional Instructions: Take your medication as prescribed. Please follow-up with your primary care provider. Please return to the Emergency Department if symptoms worsen or any other concerns. Prescriptions: Venlafaxine HCl [Effexor XR] 150 mg PO DAILY 5 Days #5 cap Gabapentin 600 mg PO QID 5 Days #20 tab Is patient prescribed a controlled substance at d/c from ED?: No Referrals: None,Stated [Primary Care Provider] - 1-2 days Time of Disposition: 13:41
== END 2023-03-04 14:00 | disposition home or self-care (01) ==
LOC: EC 13:11
DX: Z76.0 Encounter for issue of repeat prescription (principal); F41.9 Anxiety disorder, unspecified; F17.200 Nicotine dependence, unspecified, uncomplicated; F12.90 Cannabis use, unspecified, uncomplicated; Z88.6 Allergy status to analgesic agent
CPT/HCPCS: 99285

== ENCOUNTER 2024-06-11 12:12 | Emergency (ER) | payer OTHER ==
[2024-06-11 12:23] VITALS: RESP 18; TEMP 97.9
[2024-06-11] MEDS: MELOXICAM 7.5 MG TAB PO STA (13:19)
[2024-06-11] MEDS: ORPHENADRINE 30 MG/ML 2 ML VIAL IM STA (13:20)
[2024-06-11] MEDS: DEXAMETHASONE SOD PHOSPHATE 10 MG/ML 1 ML VIAL IM STA (13:20)
[2024-06-11] MEDS: LIDOCAINE 4% PATCH TOPICAL ONE (13:23)
[2024-06-11] MEDS: HYDROmorphone 1 MG/ML 1 ML SYRINGE IM STA (14:00)
--- NOTE | 2024-06-11 14:42 | ED ---
Back Pain HPI - General Chief Complaint: Back Pain/Injury Stated Complaint: Back injury Time Seen by Provider: 06/11/24 12:30 Source: patient, RN notes reviewed Mode of arrival: ambulatory Limitations: no limitations - History of Present Illness Initial Comments: This is a 44 year old male who presents to the emergency department for lower back pain. States that it started 3 days ago and was triggered by a coughing fit when he swallowed liquid wrong. Pain is primarily left-sided. Reports a history of chronic back problems related to herniated disks causing occasional bouts of pain. Denies any loss of bowel/bladder control or saddle anesthesia. He has tried taking [id number] medications without relief. States that steroids are usually effective. MD Complaint: back pain - Related Data Previous Rx's Medication Instructions Recorded Gabapentin 600 mg PO QID 5 Days #20 tab 03/04/23 Venlafaxine HCl [Effexor XR] 150 mg PO DAILY 5 Days #5 cap 03/04/23 Cyclobenzaprine [Flexeril] 10 mg PO TID PRN #30 tab 06/11/24 Lidocaine 5% Patch [Lidoderm 5% 1 patch TOPICAL DAILY PRN #30 patch 06/11/24 Patch] predniSONE 50 mg PO DAILY 5 Days #5 tablet 06/11/24 Allergies Allergy/AdvReac Type Severity Reaction Status Date / Time ketorolac [From Toradol] Allergy anxiety Verified 06/11/24 12:23 Review of Systems ROS Statement: Those systems with pertinent positive or pertinent negative responses have been documented in the HPI. ROS Other: All systems not noted in ROS Statement are negative. Past Medical History Additional Past Medical History / Comment(s): Hep C, back pain , COVID History of Any Multi-Drug Resistant Organisms: None Reported Past Surgical History: Hernia Repair Past Psychological History: Anxiety, PTSD Smoking Status: Current every day smoker Past Alcohol Use History: None Reported Past Drug Use History: Marijuana General Exam Limitations: no limitations General appearance: alert, in no apparent distress Head exam: Present: atraumatic, normocephalic, normal inspection Respiratory exam: Present: normal lung sounds bilaterally. Absent: respiratory distress, wheezes, rales, rhonchi, stridor Cardiovascular Exam: Present: regular rate, normal rhythm, normal heart sounds. Absent: systolic murmur, diastolic murmur, rubs, gallop, clicks Back exam: Present: other (Tenderness to palpation over the left lower back) Neurological exam: Present: alert, oriented X3, CN II-XII intact Psychiatric exam: Present: normal affect, normal mood Skin exam: Present: warm, dry, intact, normal color. Absent: rash Course Vital Signs 06/11/24 06/11/24 12:20 14:47 Temperature 97.9 F Pulse Rate 87 69 Respiratory 18 18 Rate Blood Pressure 135/43 121/75 O2 Sat by Pulse 100 100 Oximetry Medical Decision Making - Medical Decision Making This is a 44 year old male who presents to the emergency department for back pain. Was pt. sent in by a medical professional or institution? @ -No Did you speak to anyone other than the patient for history? @ -No Did you review nursing and triage notes? @ -Yes, and I agree, it is accurate with regards to the patient's symptoms. Were old charts reviewed? @ -No Differential Diagnosis? @ -Differential Back Pain: Strain, zoster, cauda equina syndrome, epidural abscess, vertebral osteomyelitis, discitis, fracture, subluxation, disc herniation, DJD, spinal stenosis, dissection, AAA, pancreatitis, peptic ulcer disease, pyelonephritis, kidney stone, this is not meant to be an all-inclusive list. EKG interpreted by me (3pts min.)? @ -Not obtained X-rays interpreted by me (1pt min.)? @ -Not obtained CT interpreted by me (1pt min.)? @ -Not obtained U/S interpreted by me (1pt. min.)? @ -Not obtained What testing was considered but not performed? (CT, X-rays, U/S, labs)? Why? @ -Discussion of x-rays, however given that this is a chronic issue and aside from coughing there were no new injuries, patient opted to avoid this. What meds were considered but not given? Why? @ -None Did you discuss the management of the patient with other professionals? @ -No Did you reconcile home meds? @ -No Was smoking cessation discussed for >3mins.? @ -I discussed smoking cessation for greater than 3 minutes. The risk of smoking were discussed with the patient including but not limited to risks of cancer, stroke, coronary artery disease and COPD. Also discussed with patient were multiple methods of quitting smoking. Lastly we discussed the financial cost of smoking. Was critical care preformed (if so, how long)? @ -No Were there social determinants of health that impacted care today? How? (Homelessness, low income, unemployed, alcoholism, drug addiction, transportation, low edu. Level, literacy, decrease access to med. care, custodial, rehab)? @ -No Was there de-escalation of care discussed even if they declined? (Discuss DNR or withdrawal of care, Hospice)? @ -No What co-morbidities impacted this encounter? (DM, HTN, Smoking, COPD, CAD, Cancer, CVA, Hep., AIDS, mental health diagnosis, sleep apnea, morbid obesity)? @ -Chronic back pain, smoking Was patient admitted / discharged? @ -Discharged. Given that this is an exacerbation of an otherwise chronic issue without any new injuries, no imaging was obtained. Pain was managed in the emergency department. Given that steroids are often effective, a prescription for a 5-day course of prednisone along with Flexeril and lidocaine patches were provided. Otherwise advised follow-up with his PCP. Case discussed with ED attending Dr. Iqbal. Return precautions reviewed in depth, the patient is instructed to return to the emergency department with any new, worsening, or concerning symptoms. Patient verbalized understanding. Undiagnosed new problem with uncertain prognosis? @ -None Drug Therapy requiring intensive monitoring for toxicity (Heparin, Nitro, Insulin, Cardizem)? @ -None Were any procedures done? @ -None Diagnosis/symptom? @ -Low back strain Acute, or Chronic, or Acute on Chronic? @ -Acute Uncomplicated (without systemic symptoms) or Complicated (systemic symptoms)? @ -Uncomplicated Side effects of treatment? @ -None Exacerbation, Progression, or Severe Exacerbation] @ -Not applicable Poses a threat to life or bodily function? @ -No Disposition Clinical Impression: Back pain Disposition: HOME SELF-CARE Instructions (If sedation given, give patient instructions): Low Back Strain (ED), Acute Low Back Pain (ED) Additional Instructions: Return to the emergency department with any new, worsening, or concerning symptoms. Take the prednisone daily for 5 days. Take the Flexeril up to 3 times daily as needed for pain relief. You can also apply the lidocaine patches daily. Follow up with your primary care provider in 1-2 days. Prescriptions: Cyclobenzaprine [Flexeril] 10 mg PO TID PRN #30 tab PRN Reason: Pain Lidocaine 5% Patch [Lidoderm 5% Patch] 1 patch TOPICAL DAILY PRN #30 patch PRN Reason: Pain predniSONE 50 mg PO DAILY 5 Days #5 tablet Is patient prescribed a controlled substance at d/c from ED?: No Referrals: None,Stated [Primary Care Provider] - 1-2 days Time of Disposition: 14:42
[2024-06-11] MEDS: traMADol 50 MG STARTER PACK 3 TAB BTL PO STA (14:44)
[2024-06-11 14:48] VITALS: BP 121/75; PULSE 69
== END 2024-06-11 14:48 | disposition home or self-care (01) ==
LOC: EC 12:12
DX: S39.012A Strain of muscle, fascia and tendon of lower back, initial encounter (principal); F17.200 Nicotine dependence, unspecified, uncomplicated; Z88.6 Allergy status to analgesic agent; X58.XXXA Exposure to other specified factors, initial encounter
CPT/HCPCS: 99283; 96372 ×3; J1100; J2360; J1170; 99406